=== PATIENT | male | born 1985 | race Two or more races ===

== ENCOUNTER 2023-06-29 15:48 | Emergency (ER) | payer OTHER ==
[~2023-06-29] VITALS: Ht 180.3 cm; Wt 77.1 kg
== END 2023-06-29 21:51 | disposition home or self-care (01) ==
LOC: ER 15:48
DX: S00.83XA Contusion of other part of head, initial encounter (principal); X58.XXXA Exposure to other specified factors, initial encounter; Y93.89 Activity, other specified; Y92.89 Other specified places as the place of occurrence of the external cause; Y99.8 Other external cause status

== ENCOUNTER 2023-09-29 18:51 | Emergency (ER) | payer OTHER ==
[~2023-09-29] VITALS: Ht 180.3 cm; Wt 77.1 kg
[2023-09-29 21:03] LABS: HEMATOCRIT 42.9 % (39.0-48.0); HEMOGLOBIN 15.1 g/dL (13-16.00); MEAN CELL VOLUME 86.6 fL (80.0-100.00); MEAN CORPUSCULAR HEMOGLOBIN 30.4 pg (27.00-32.0); MEAN CORPUSCULAR HGB CONC 35.1 g/dl (32.0-36.0); PLATELET COUNT 372 K/uL (150-450); RED BLOOD COUNT 4.96 M/uL (4.00-6.00); RED CELL DISTRIBUTION WIDTH 12.7 % (11.5-14.5)
== END 2023-09-29 22:05 | disposition home or self-care (01) ==
LOC: ER 18:51
PROVIDERS: General Practice
DX: J06.9 Acute upper respiratory infection, unspecified (principal); R53.81 Other malaise; Z20.822 Contact with and (suspected) exposure to COVID-19